=== PATIENT | female | born 1970 | race Caucasian/White ===

== ENCOUNTER → 2017-02-06 | Outpatient (CLI) | payer OTHER ==
[2015-11-24 10:01] VITALS: BP 101/81
[2017-02-06 12:03] LABS: BASOPHILS % (AUTO) 0.5 % (0.2-1.0); EOSINOPHILS # (AUTO) 0.1 x10^3/uL (0.0-0.2); EOSINOPHILS % (AUTO) 1.7 % (0.9-2.9); HEMATOCRIT 40.5 % (36.0-47.0); HEMOGLOBIN 13.3 g/dL (12.0-16.0); LYMPHOCYTES % (AUTO) 24.2 % (21.0-51.0); MEAN CORPUSCULAR HEMOGLOBIN 26.9 pg (27.0-34.0); MEAN CORPUSCULAR HGB CONC 32.9 g/dL (33.0-35.0); MEAN CORPUSCULAR VOLUME 81.6 fL (80.0-100.0); MEAN PLATELET VOLUME 9.6 fL (7.4-11.0); MONOCYTES # (AUTO) 0.6 x10^3/uL (0.3-0.8); NEUTROPHILS # (AUTO) 5.4 x10^3/uL (2.2-4.8); NEUTROPHILS % (AUTO) 66.6 % (42.0-75.0); PLATELET COUNT 286 X10^3/uL (150.0-450.0); RED BLOOD COUNT 4.96 X10^6/uL (3.5-5.4); RED CELL DISTRIBUTION WIDTH 14.1 % (11.6-16.5); WHITE BLOOD COUNT 8.1 X10^3/uL (3.6-10.0)
[2017-02-06 12:07] LABS: BLOOD UREA NITROGEN 10 mg/dL (7-18); CALCIUM 9.1 mg/dL (8.5-10.1); CARBON DIOXIDE 28.4 mmol/L (21-32); CHLORIDE 104 mmol/L (98-107); CREATININE 0.86 mg/dL (0.55-1.02); GLUCOSE 89 mg/dL (65-99); SODIUM 142 mmol/L (136-145); eGFR BLACK RACES > 60 (>60); eGFR NON BLACK RACES > 60 (>60)
[2017-02-06 12:07] LABS: BILIRUBIN,URINE NEGATIVE (NEGATIVE); BLOOD/HEMOGLOBIN,URINE NEGATIVE (NEGATIVE); GLUCOSE, URINE NEGATIVE (NEGATIVE); KETONES,URINE NEGATIVE (NEGATIVE); LEUKOCYTE ESTERASE ,URINE 1+ (NEGATIVE); NITRITES,URINE NEGATIVE (NEGATIVE); PROTEIN,URINE 1+ (NEGATIVE); UROBILINOGEN,URINE NORMAL (NORMAL)
[2017-02-06 12:11] LABS: SERUM PREGNANCY TEST, QUAL NEGATIVE <10 mIU/mL
[2017-02-06 12:35] LABS: APPEARANCE,URINE CLEAR (CLEAR); COLOR,URINE YELLOW (YELLOW); RBC,URINE 0-3 /HPF (NEGATIVE); SQUAMOUS EPITHELIAL CELL,UR MODERATE /HPF (NEGATIVE)
[2017-02-06 12:36] LABS: BACTERIA,URINE TRACE /HPF (NEGATIVE)
--- NOTE | 2017-02-06 12:53 | RAD ---
HISTORY: Preop hysterectomy. Study: Chest two views Comparison: November 16, 2015. Findings: The trachea is midline. The cardiac silhouette is unremarkable. The lungs are clear without focal infiltrate or effusion. The bony thorax is unremarkable. IMPRESSION: 1. No acute cardiopulmonary disease. Reported By:
== END ==
LOC: LAB 11:12
PROVIDERS: ATTEND Specialist
DX: Z01.818 Encounter for other preprocedural examination (principal); N92.5 Other specified irregular menstruation; R10.2 Pelvic and perineal pain; D50.8 Other iron deficiency anemias
CPT/HCPCS: 36415; 71020; 80048; 81001; 84703; 85025; 85610; 85730; 86850; 86900; 86901; 87086; 93005; 93010

== ENCOUNTER 2017-02-11 06:20 | Day surgery (SDC) | payer OTHER ==
[2017-02-11] MEDS ORDERED: D5 1/2 NS 1000 ML 1,000 ML IV SCH ×2 (06:38→09:38)
[2017-02-11] MEDS ORDERED: ANCEF VIAL 1 GM 1 GM in NS 50 ML IV + SPIKE MINIBAG* 50 ML IV PRN (06:38)
[2017-02-11] MEDS ORDERED: NS 50 ML IV + SPIKE MINIBAG* 50 ML IV ONE (06:39)
[2017-02-11] MEDS ORDERED: LR 1000 ML IV 1,000 ML IV ONE ×2 (06:40→08:07)
[2017-02-11] MEDS ORDERED: ANCEF VIAL 1 GM ONE (06:40)
[2017-02-11] MEDS ORDERED: VASOSTRICT INJ 20 UNITS VIAL ONE (06:49)
[2017-02-11] MEDS ORDERED: FENTANYL INJ 250 mcg ONE (07:05)
[2017-02-11 07:22] VITALS: BMI 25.0
[2017-02-11] MEDS ORDERED: NS IRRIGATION 1000 ML 1,000 ML IR ONE (07:34)
[2017-02-11] MEDS ORDERED: PERCOCET TAB 5/325 MG PO PRN ×3 (08:59→11:15)
[2017-02-11] MEDS ORDERED: MILK OF MAGNESIA PO PRN ×2 (08:59→09:38)
[2017-02-11] MEDS ORDERED: ZOFRAN INJ 4 MG VIAL IVP PRN ×2 (09:03→09:38)
[2017-02-11] MEDS ORDERED: PHENERGAN INJ 25 MG IVP PRN (09:03)
[2017-02-11] MEDS ORDERED: BENADRYL INJ 50 MG VIAL IVP PRN ×2 (09:03→09:38)
[2017-02-11] MEDS ORDERED: DILAUDID INJ IVP PRN (09:03)
[2017-02-11] MEDS ORDERED: REGLAN INJ 10 MG VIAL IVP PRN (09:03)
[2017-02-11] MEDS ORDERED: TORADOL 30 MG VIAL ONE (09:17)
[2017-02-11] MEDS: TORADOL 30 MG VIAL IVP PRN ×2 (12:53→22:40)
[2017-02-11] MEDS ORDERED: VERSED ONE (15:31)
[2017-02-11] MEDS ORDERED: DIPRIVAN VIAL ONE (15:31)
[2017-02-11] MEDS ORDERED: ZOFRAN INJ 4 MG VIAL ONE (15:31)
[2017-02-11] MEDS ORDERED: XYLOCAINE 2 % (PLAIN) ONE (15:31)
[2017-02-11] MEDS ORDERED: NEOSTIGMINE INJ ONE (15:31)
[2017-02-11] MEDS ORDERED: QUELICIN (OR ANECTINE) ONE (15:31)
[2017-02-11] MEDS ORDERED: NORCURON INJ 10 MG VIAL ONE (15:31)
[2017-02-11] MEDS ORDERED: REGLAN INJ 10 MG VIAL ONE (15:31)
[2017-02-11] MEDS ORDERED: ROBINUL ONE (15:31)
[2017-02-11] MEDS: D5 1/2 NS 1000 ML 1,000 ML IV SCH (15:57)
[2017-02-11] MEDS ORDERED: COLACE CAP 100 MG PO SCH ×2 (21:00)
[2017-02-12] MEDS: D5 1/2 NS 1000 ML 1,000 ML IV SCH (00:16)
[2017-02-12 06:23] LABS: BASOPHILS % (AUTO) 0.3 % (0.2-1.0); EOSINOPHILS # (AUTO) 0.1 x10^3/uL (0.0-0.2); EOSINOPHILS % (AUTO) 0.7 % (0.9-2.9); HEMATOCRIT 32.8 % (36.0-47.0); HEMOGLOBIN 10.8 g/dL (12.0-16.0); LYMPHOCYTES # (AUTO) 1.9 X10^3/uL (1.3-2.9); LYMPHOCYTES % (AUTO) 15.4 % (21.0-51.0); MEAN CORPUSCULAR HEMOGLOBIN 26.9 pg (27.0-34.0); MEAN CORPUSCULAR VOLUME 81.4 fL (80.0-100.0); MEAN PLATELET VOLUME 9.8 fL (7.4-11.0); MONOCYTES # (AUTO) 1.3 x10^3/uL (0.3-0.8); MONOCYTES % (AUTO) 10.6 % (0.0-13.0); NEUTROPHILS # (AUTO) 8.8 x10^3/uL (2.2-4.8); PLATELET COUNT 211 X10^3/uL (150.0-450.0); RED BLOOD COUNT 4.04 X10^6/uL (3.5-5.4); RED CELL DISTRIBUTION WIDTH 14.1 % (11.6-16.5); WHITE BLOOD COUNT 12.1 X10^3/uL (3.6-10.0)
[2017-02-12 06:29] LABS: BLOOD UREA NITROGEN 6 mg/dL (7-18); CALCIUM 8.1 mg/dL (8.5-10.1); CARBON DIOXIDE 28.4 mmol/L (21-32); CHLORIDE 107 mmol/L (98-107); CREATININE 0.76 mg/dL (0.55-1.02); GLUCOSE 91 mg/dL (65-99); SODIUM 142 mmol/L (136-145); eGFR BLACK RACES > 60 (>60); eGFR NON BLACK RACES > 60 (>60)
[2017-02-12 08:03] VITALS: BP 113/69
[2017-02-12] MEDS: TORADOL 30 MG VIAL IVP PRN (08:26)
== END 2017-02-12 10:15 | disposition home or self-care (01) ==
LOC: SURG1 06:20 → MED/SURG 09:30 → UNDOFXSDCRRACCOM 09:38 → UNDOFXSDCACCOM 09:38 → SURG1 02-12 06:54 → MED/SURG 02-12 06:54 → SURG1 02-12 07:24 → MED/SURG 02-12 07:24 → SURG1 02-12 07:26
PROVIDERS: ADMIT Specialist; ATTEND Specialist
PROC: 0UTC7ZZ Resection of Cervix, Via Natural or Artificial Opening (ICD-10-PCS; 2017-02-11)
PROC: 0UT97ZZ Resection of Uterus, Via Natural or Artificial Opening (ICD-10-PCS; principal; 2017-02-11 07:30)
DX: N92.5 Other specified irregular menstruation (principal); R10.2 Pelvic and perineal pain; D50.8 Other iron deficiency anemias
CPT/HCPCS: 36415; 80048; 85025; A4216; A4222; G0378; J0330; J0690; J1885; J2001; J2250; J2405; J2710; J2765; J3010; J3490; J7042; J7120